=== PATIENT | female | born 1970 | race Caucasian/White ===

== ENCOUNTER 2017-06-29 23:46 | Emergency (ER) | payer SELFPAY ==
[2017-06-29 23:46] VITALS: BMI 24.4
[2017-06-29 23:56] VITALS: RESP 16; O2SAT 100
--- NOTE | 2017-06-30 00:24 | ED PDOC ---
HPI: General Adult Time Seen by Provider: 06/30/17 00:05 Chief Complaint (Nursing): Chest Pain Chief Complaint (Provider): Chest Pain/Headache History Per: Patient History/Exam Limitations: no limitations Onset/Duration Of Symptoms: Days (x7) Additional Complaint(s): Valeria Mcgovern is a 46 year old female with a history of arthritis and migraines that presents to the ED with a chief complaint of headache, left shoulder pain, upper chest pain, and upper back pain that she has been experiencing for the past week. Patient report that her pain is worse with movement, but denies any shortness of breath, diaphoresis, or exertional pain. Past Medical History Reviewed: Historical Data, Nursing Documentation, Vital Signs Vital Signs: Last Vital Signs Temp 98.1 F 06/30/17 03:05 Pulse 75 06/30/17 03:05 Resp 16 06/30/17 03:05 BP 145/80 06/30/17 03:05 Pulse Ox 100 06/30/17 03:05 - Medical History PMH: Arthritis (Right shoulder), Gastritis, Gall Bladder Disease (CHOLELITHIASIS ), Migraine Denies: Chronic Kidney Disease - Surgical History Surgical History: Cholecystectomy (11/04/14) - Family History Family History: States: Unknown Family Hx Other Family History: History of cardiac disease - Home Medications Home Medications: Ambulatory Orders Medication Instructions Recorded Naproxen [Naprosyn] 500 mg PO Q8 #30 tablet 06/30/17 - Allergies Allergies/Adverse Reactions: Allergies Allergy/AdvReac Type Severity Reaction Status Date / Time No Known Allergies Allergy Verified 06/29/17 23:52 Review of Systems Constitutional: Negative for: Other (Patient denies diaphoresis or exertional pain.) Cardiovascular: Positive for: Chest Pain (Upper chest pain) Respiratory: Negative for: Shortness of Breath Musculoskeletal: Positive for: Shoulder Pain (left shoulder), Back Pain (Upper back) Neurological: Positive for: Headache Physical Exam - Reviewed Nursing Documentation Reviewed: Yes Vital Signs Reviewed: Yes - Physical Exam Appears: Positive for: Non-toxic, No Acute Distress Head Exam: Positive for: ATRAUMATIC, NORMOCEPHALIC Skin: Positive for: Normal Color, Warm Eye Exam: Positive for: Normal appearance, EOMI, PERRL Cardiovascular/Chest: Positive for: Regular Rate, Rhythm. Negative for: Murmur Respiratory: Positive for: Normal Breath Sounds. Negative for: Wheezing Gastrointestinal/Abdominal: Positive for: Normal Exam, Soft. Negative for: Tenderness Back: Positive for: Other (TTP of left trapezius). Negative for: Normal Inspection Extremity: Positive for: Normal ROM (full ROM of all extremities). Negative for : Swelling Neurologic/Psych: Positive for: Alert, Oriented. Negative for: Motor/Sensory Deficits - Laboratory Results Result Diagrams: 06/30/17 00:18 06/30/17 00:18 - ECG O2 Sat by Pulse Oximetry: 100 (RA) Pulse Ox Interpretation: Normal Medical Decision Making Medical Decision Making: Impression: Musculoskeletal Pain Plan: * EKG * BMP * CBC * Troponin I * Toradol 15 mg IV * Reglan 10 mg IV * Reevaluation 2:55 Patient reports that she is feeling much better and has no additional complaints. Patient will be given prescription for Naproxen advised to follow up with PMD, is stable for discharge home. Clinical Impression: Joint Pain/Myalgia/Headache Scribe Attestation: Documented by Clarisa Fitzgerald, acting as a scribe for Brian Soria MD. Provider Scribe Attestation: All medical record entries made by the Scribe were at my direction and personally dictated by me. I have reviewed the chart and agree that the record accurately reflects my personal performance of the history, physical exam, medical decision making, and the department course for this patient. I have also personally directed, reviewed, and agree with the discharge instructions and disposition. Disposition - Clinical Impression Clinical Impression: Joint pain, Myalgia, Headache - Patient ED Disposition Is Patient to be Admitted: No - Disposition Referrals: Almita Medina [Primary Care Provider] - Disposition Time: 02:55 Condition: STABLE Prescriptions: Naproxen [Naprosyn] 500 mg PO Q8 #30 tablet Instructions: Migraine Headache (ED), Musculoskeletal Pain (ED), Arthralgia (ED ) Forms: [facility] (Surinamese) Print Language: GREENLANDIC
[2017-06-30 00:33] LABS: BASO # 0.1 K/uL (0.0-0.2); BASO % 0.9 % (0.0-2.0); EOS # 0.2 K/uL (0.0-0.7); EOS % 2.9 % (0.0-4.0); HEMATOCRIT 36.8 % (34.0-47.0); LYMPH # 2.8 K/uL (1.0-4.3); LYMPH % 41.1 % (20.0-40.0); MEAN CELL VOLUME 83.7 fl (81.0-99.0); MEAN CORPUSCULAR HGB CONC 32.2 g/dL (33.0-37.0); MEAN PLATELET VOLUME 7.8 fl (7.2-11.7); MONO # 0.5 K/uL (0.0-0.8); MONO % 7.4 % (0.0-10.0); NEUT # 3.3 K/uL (1.8-7.0); NEUT % 47.7 % (50.0-75.0); NRBC % 0.1 % (0.0-0.0); RED CELL DISTRIBUTION WIDTH 13.6 % (11.5-14.5); WHITE BLOOD COUNT 6.8 K/uL (4.8-10.8)
[2017-06-30 00:49] LABS: BLOOD UREA NITROGEN 13 mg/dl (7-17); CALCIUM 9.1 mg/dL (8.4-10.2); CARBON DIOXIDE 26 mmol/L (22-30); CHLORIDE 106 mmol/L (98-107); GFR AFRICAN-AMERICAN > 60; GLUCOSE,RANDOM 91 mg/dL (65-105); POTASSIUM 4.4 MMOL/L (3.6-5.0); SODIUM 141 mmol/l (132-148)
[2017-06-30 03:06] VITALS: BP 145/80; PULSE 75; TEMP 98.1
--- NOTE | 2017-06-30 12:56 | RAD ---
HISTORY: cp, back pain, shoulder pain COMPARISON: None available. TECHNIQUE: Chest PA and lateral FINDINGS: LUNGS: No focal consolidation. Please note that chest x-ray has limited sensitivity for the detection of pulmonary masses. PLEURA: No significant pleural effusion identified. No definite pneumothorax . CARDIOVASCULAR: Heart size appears within normal limits. OSSEOUS STRUCTURES: No acute osseous abnormality identified. VISUALIZED UPPER ABDOMEN: Unremarkable. OTHER FINDINGS: None. IMPRESSION: No focal consolidation, significant pleural effusion, or definite pneumothorax identified.
--- NOTE | 2017-06-30 23:01 | CARD ---
APPROVED REPORT EKG Measurement Heart [id number] <Conclusion> Normal sinus rhythm Normal ECG
== END 2017-06-30 03:07 | disposition home or self-care (01) ==
LOC: H.ER 23:46
DX: G43.909 Migraine, unspecified, not intractable, without status migrainosus (principal); M79.1 Myalgia; R07.89 Other chest pain; M25.512 Pain in left shoulder
CPT/HCPCS: 71020; 80048; 81025; 84484; 85025; 93005; 96374; 96375; 99284; J1885; J2765